=== PATIENT | male | born 1960 | race Caucasian/White ===

== ENCOUNTER 2017-01-20 17:04 | Emergency (ER) | payer MEDICARE, MEDICAID ==
[~2017-01-20] VITALS: Ht 165.1 cm; Wt 48.0 kg
[~2017-01-20 17:04] MED LIST: ASPI325T PO; ATOR80TA PO; ATRITAB PO; VALT500T PO; VITA100018 PO
[2017-01-20 17:05] VITALS: BP 124/64; PULSE 75; RESP 15; TEMP 98.1; O2SAT 99
--- NOTE | 2017-01-20 17:29 | PD ---
HPI Chief Complaint: End Matcher Problem Time Seen by Provider: 17:29 Travel History International Travel<30 days: No Contact w/Intl Traveler<30days: No Traveled to known affect area: No History of Present Illness HPI 56-year-old male with a history of HIV and throat cancer presents to the emergency department for evaluation of G tube accidentally removed. The patient has a G tube for nutrition due to his throat cancer. He just finished radiation therapy one week ago and he is able to eat and drink but not enough to sustain his nutrition. He is at the G tube 6 times daily. States that he was cleaning his house 30 minutes ago and accidentally pulled out his G tube. This is the first time this is ever happened to him. He had the G-tube placed 8 months ago. He denies any medical complaints. Denies abdominal pain, chest pain, shortness of breath, nausea, vomiting. No other complaints. PFSH Past Medical History Blood Disorders: No Anxiety: Yes Cancer: No Cardiovascular Problems: No Cerebrovascular Accident: Yes Diminished Hearing: No Endocrine: No Gastrointestinal Disorders: Yes Genitourinary: Yes Headaches: Yes (EVERY DAY) Hepatitis: Yes (HEP A IN HIGH SCHOOL) Immune Disorder: Yes (HIV ) Kidney Stones: Yes Musculoskeletal: No Neurologic: Yes Psychiatric: Yes Reproductive: No Respiratory: No Past Surgical History Abdominal Surgery: Yes (EXP LAP) Arteriovenous Shunt: Yes (2005) Cholecystectomy: Yes Genitourinary Surgery: Yes (KIDNEY STONE REMOVED) Social History Alcohol Use: Yes ([employer]) Tobacco Use: Yes (3/4 PACK A DAY) Substance Use: No Allergies-Medications (Allergen,Severity, Reaction): Coded Allergies: Bactrim (Verified Allergy, Mild, Swelling, 01/20/17) Reported Meds & Prescriptions Reported Meds & Active Scripts Active Reported Genvoya (Sdizgoazjktp-Olafzqjjcr-Btegphijmadd-Tenofvir) [phone] Mg Tab 1 Tab PO DAILY Valtrex (Valacyclovir HCl) 1 Gm Tab 1,000 Mg PO BID Vitamin D (Cholecalciferol) 1,000 Unit Tab 1,000 Units PO DAILY Atorvastatin (Atorvastatin Calcium) 80 Mg Tab 80 Mg PO HS Aspirin 325 Mg Tab 325 Mg PO DAILY Review of Systems Except as stated in HPI: all other systems reviewed are Neg Physical Exam Narrative GENERAL: Well-nourished and well-developed pleasant patient in no acute distress who is nontoxic appearing. SKIN: Warm and dry. HEAD: Normocephalic and atraumatic. EYES: No injection, drainage, or hyphema noted. PERRLA. EOMI. ENT: No nasal drainage noted. Oropharynx is clear. NECK: Supple and the trachea is midline. CARDIOVASCULAR: Regular rate and rhythm. RESPIRATORY: Breath sounds are equal bilaterally with no accessory muscle use, wheezing, rhonchi, or crackles. GASTROINTESTINAL: Small hole noted to left upper quadrant where her G-tube should be inserted, currently it is out of place. Abdomen is soft, non-tender, and nondistended. MUSCULOSKELETAL: No obvious deformities, swelling, cyanosis, or ecchymosis is present throughout the upper and lower extremities. Patient has full range of motion without any signs of neurovascular compromise. NEUROLOGICAL: Awake, alert, and oriented. Normal speech and gait. Cranial nerves are grossly intact. Data Data Last Documented VS Vital Signs Date Time Temp Pulse Resp B/P Pulse Ox O2 Delivery O2 Flow Rate FiO2 01/20/17 17:05 98.1 75 15 124/64 99 Orders Abdomen, Kub Only (01/20/17 17:42) Diatrizoate Liq ( Gastroview Liq) (01/20/17 18:08) MDM Medical Decision Making Medical Screen Exam Complete: Yes Emergency Medical Condition: Yes Differential Diagnosis G-tube malfunction versus G-tube placement versus emergency medical technician/driver malfunction Narrative Course 56-year-old male presents to the emergency department for evaluation of G-tube accidentally being cold out. Patient is afebrile, vital signs are stable. He denies any medical complaints. The patient brought his own G-tube with him and it shows he had a 20 Polish G-tube in place previously. I was able to replace the G-tube with another 20 Polish. X-ray ordered confirms placement of G-tube in the stomach. Patient is stable for discharge. I discussed the case with my attending physician Dr. Buckley who is aware of the patients history, physical examination findings, and treatment plan. Diagnosis Primary Impression: Gastrostomy tube dysfunction Referrals: Primary Care Physician Patient Instructions: General Instructions, How to Use and Care for Your PEG Tube (ED) Additional Instructions: Follow-up with your Primary Care Physician. Return to the ED for any acute worsening of symptoms. Med/Other Pt SpecificInfo: No Change to Meds Disposition: 01 DISCHARGE HOME Condition: Stable Diane Felder Jan 20, 2017 17:29
[2017-01-20] MEDS ORDERED: VITA100064 PO (17:43)
[2017-01-20] MEDS ORDERED: ASPI325T PO (17:43)
[2017-01-20] MEDS ORDERED: VALT1TAB PO (17:43)
[2017-01-20] MEDS ORDERED: ATOR1TAB18 PO (17:43)
[2017-01-20] MEDS ORDERED: ELVI1TAB3 PO (17:43)
--- NOTE | 2017-01-20 17:52 | PD ---
Physical Exam Date Seen by Provider: Jan 20, 2017 Time Seen by Provider: 17:20 Narrative Patient is here because his G-tube has come out Data Data Last Documented VS Vital Signs Date Time Temp Pulse Resp B/P Pulse Ox O2 Delivery O2 Flow Rate FiO2 01/20/17 17:05 98.1 75 15 124/64 99 Orders Abdomen, Kub Only (01/20/17 17:42) MDM Supervised Visit with MARIA INES: Yes Narrative Course I, Dr. Buckley, have reviewed the advance practice practitioner's documentation and am in agreement, met with the patient face to face, made the diagnosis, and the medical decision making was done by me. *My assessment and Findings: Patient has a stoma in the left upper abdomen. I assisted in CHERISE Mcarthur in the insertion of the new G-tube. Referrals: Primary Care Physician Patient Instructions: General Instructions, How to Use and Care for Your PEG Tube (ED) Additional Instruction: Follow-up with your Primary Care Physician. Return to the ED for any acute worsening of symptoms. Disposition: 01 DISCHARGE HOME Condition: Stable Madeleine Buckley MD Jan 20, 2017 17:52
[2017-01-20] MEDS ORDERED: DIATRIZOATE MEGLUM/DIATRIZOATE SOD 120 ML BTL (for RAD DIAG) G-TUBE ONE (18:08)
--- NOTE | 2017-01-20 18:11 | RADRPT ---
EXAM DATE/TIME: 01/20/2017 18:01 [facility] COMPARISON: No previous studies available for comparison. INDICATIONS : G tube placement. MEDICAL HISTORY : None. SURGICAL HISTORY : G tube. ENCOUNTER: Initial ACUITY: 1 day PAIN SCORE: 110 LOCATION: Left upper quadrant abdomen. FINDINGS: Apparent injection of a peg tube which is positioned in the proximal body of the s tomach. Contrast is noted solely within the stomach no evidence of extravasation or leak. CONCLUSION: G-tube positioned in proximal body the stomach without evidence of leak Richard Che MD on January 20, 2017 at 18:08 Board Certified Radiologist. This report was verified electronically.
== END 2017-01-20 20:37 | disposition home or self-care (01) ==
LOC: NEPA 17:04
DX: K94.23 Gastrostomy malfunction (principal); F17.210 Nicotine dependence, cigarettes, uncomplicated; Z87.442 Personal history of urinary calculi; B20 Human immunodeficiency virus [HIV] disease
CPT/HCPCS: 74000; 99283; Q9963